=== PATIENT | female | born 1950 | race Caucasian/White ===

== ENCOUNTER 2023-03-22 08:54 | Inpatient (IN) | payer MEDICARE ==
[~2023-03-22] VITALS: Ht 154.9 cm; Wt 59.0 kg
[~2023-03-22 08:54] MED LIST: ALPR0.254; ARFO15NE2; AZIT-43; AZITTAB11; BUDE160A3; CALCIUM; ESTR0.1C; IPRIH; LEVAAER4; NAS17NSL; OMEP20CA74; PRAVASTATIN 40 MG; PREDNISONE 10 MG; PROMETHAZINE DM; See Long Drug Name; VITAMIN D3
[2023-03-22 10:19] VITALS: PULSE 91; RESP 24; O2SAT 98
[2023-03-22] MEDS ORDERED: ONDANSETRON HCL 4 MG/2 ML VIAL IV ONE (10:45)
[2023-03-22] MEDS ORDERED: MORPHINE SULFATE INJ 2 MG/ml SYRG IV ONE ×2 (10:45→11:15)
[2023-03-22 11:00] LABS: Basophils # (auto) 0 10 ^3/uL (0-0.2); Basophils % (auto) 0.3 % (0.0-2.0); Eosinophils # (auto) 0 10 ^3/uL (0-0.8); Eosinophils % (auto) 0.2 % (0.0-7.0); Hematocrit 36.9 % (36.0-46.0); Hemoglobin 12.5 g/dL (12.2-16.2); Lymphocytes # (auto) 0.9 10 ^3/uL (0.4-5.4); Lymphocytes % (auto) 8.5 % (10.0-50.0); Mean Corpuscular Hemoglobin 33.8 pg (28.0-32.0); Mean Corpuscular Hgb Conc. 33.9 g/dL (32.0-36.0); Mean Corpuscular Volume 99.8 fL (80.0-100.0); Monocytes # (auto) 0.8 10 ^3/uL (0-1.3); Monocytes % (auto) 7.4 % (0.0-12.0); Neutrophils # (auto) 8.8 10 ^3/uL (1.6-8.6); Neutrophils % (auto) 83.6 % (37.0-80.0); Red Cell Distribution Width 12.2 % (11.8-14.3); White Blood Cell 10.6 10^3/uL (4.4-10.8)
[2023-03-22 11:03] LABS: Alanine Aminotransferase 27 U/L (7-40); Albumin 4.6 g/dL (3.2-4.8); Alkaline Phosphatase 27 U/L (46-116); Aspartate Aminotransferase 28 U/L (13-40); BUN/Creatinine Ratio 16.2 (10.0-20.0); Blood Urea Nitrogen 11 mg/dL (9-23); Calcium 9.6 mg/dL (8.5-10.1); Carbon Dioxide 25 mmol/L (20-30); Glucose 104 mg/dL (74-106)
[2023-03-22 11:04] LABS: Bilirubin, Total 0.6 mg/dL (0.2-1.0); Total Protein 7.6 g/dL (5.7-8.2)
[2023-03-22 11:30] LABS: Anion Gap 6 (5-15); Chloride 105 mmol/L (98-107); Potassium 4.3 mmol/L (3.5-5.1); Sodium 136 mmol/L (136-145)
[2023-03-22 11:44] LABS: INR 1.05 (0.9-1.15); Partial Thromboplastin Time 28.3 SEC (24.5-34.5)
[2023-03-22 12:31] LABS: Urine Bacteria NONE SEEN /hpf (None Seen); Urine Blood Negative /uL (Negative); Urine Clarity Clear (Clear); Urine Color Colorless (Yellow); Urine Hyaline Cast FEW /lpf (0 - 2); Urine Protein, UAD Negative (Negative); Urine Specific Gravity 1.018 (1.001-1.035); Urine Urobilinogen Normal (Negative); Urine WBC 1 /hpf (0 - 5)
[2023-03-22] MEDS ORDERED: ACETAMINOPHEN 325 MG TAB PO PRN (13:45)
[2023-03-22] MEDS ORDERED: NITROGLYCERIN 0.4 MG SL TAB SL PRN (13:45)
[2023-03-22] MEDS ORDERED: DOCUSATE SOD 100 MG CAP PO PRN (13:45)
[2023-03-22] MEDS ORDERED: MORPHINE SULFATE INJ 2 MG/ml SYRG IV PRN (13:45)
[2023-03-22] MEDS ORDERED: KETOROLAC TROMETH 30 MG/ML 1ML VIAL IV ONE (14:30)
[2023-03-22] MEDS: SODIUM CHLORIDE 0.9% 1,000 ML IV SCH (14:50)
[2023-03-22] MEDS ORDERED: PRED1SUS4 OP (16:26)
[2023-03-22] MEDS ORDERED: KETO0.5S31 LEFTEYE (16:26)
[2023-03-22] MEDS ORDERED: MOXI0.5S3 LEFTEYE (16:26)
[2023-03-22] MEDS ORDERED: ATOR20TA50 PO (16:26)
[2023-03-22] MEDS ORDERED: FLUT1AER3 PO (16:26)
[2023-03-22] MEDS ORDERED: prednisoLONE ACETATE 1% OPTH SUSP 5ML OP SCH (18:00)
[2023-03-22] MEDS: MOXIFLOXACIN HYDROCHLORIDE LEFTEYE SCH ×2 (18:03→22:00)
[2023-03-22] MEDS: HYDROcodone-ACET 5/325MG TAB PO PRN (18:44)
[2023-03-22 20:15] VITALS: PULSE 84; RESP 12; O2SAT 99
[2023-03-22] MEDS: KETOROLAC TROMETHAMINE 0.5% LEFTEYE SCH (22:00)
[2023-03-22] MEDS: ATORVASTATIN 20 MG TAB PO SCH (22:43)
[2023-03-22] MEDS: ONDANSETRON HCL 4 MG/2 ML VIAL IV PRN (22:43)
[2023-03-22] MEDS: MORPHINE SULFATE INJ 2 MG/ml SYRG IV PRN (22:44)
[2023-03-23] VITALS (10 sets, daily range): BP systolic 121–139; BP diastolic 59–74; PULSE 73–98; RESP 12–19; TEMP 97.6–99.9; O2SAT 90–97
[2023-03-23] MEDS: MORPHINE SULFATE INJ 2 MG/ml SYRG IV PRN ×2 (05:06→20:19)
[2023-03-23] MEDS: MOXIFLOXACIN HYDROCHLORIDE LEFTEYE SCH ×4 (05:18→21:43)
[2023-03-23] MEDS: SODIUM CHLORIDE 0.9% 1,000 ML IV SCH ×2 (06:25→14:36)
[2023-03-23 06:35] LABS: Basophils # (auto) 0 10 ^3/uL (0-0.2); Basophils % (auto) 0.4 % (0.0-2.0); Eosinophils # (auto) 0.2 10 ^3/uL (0-0.8); Eosinophils % (auto) 2.6 % (0.0-7.0); Hematocrit 33.3 % (36.0-46.0); Hemoglobin 11.4 g/dL (12.2-16.2); Lymphocytes # (auto) 0.9 10 ^3/uL (0.4-5.4); Lymphocytes % (auto) 13.1 % (10.0-50.0); Mean Corpuscular Hgb Conc. 34.2 g/dL (32.0-36.0); Mean Corpuscular Volume 99.2 fL (80.0-100.0); Monocytes # (auto) 0.4 10 ^3/uL (0-1.3); Monocytes % (auto) 6.4 % (0.0-12.0); Neutrophils # (auto) 5.4 10 ^3/uL (1.6-8.6); Neutrophils % (auto) 77.5 % (37.0-80.0); Red Blood Cells 3.35 10^6/uL (4.0-5.20); Red Cell Distribution Width 12.4 % (11.8-14.3)
[2023-03-23 06:51] LABS: Alanine Aminotransferase 20 U/L (7-40); Alkaline Phosphatase 27 U/L (46-116); Anion Gap 5 (5-15); Aspartate Aminotransferase 16 U/L (13-40); BUN/Creatinine Ratio 20.9 (10.0-20.0); Blood Urea Nitrogen 19 mg/dL (9-23); Carbon Dioxide 27 mmol/L (20-30); Chloride 103 mmol/L (98-107); Glucose 105 mg/dL (74-106); Potassium 4.4 mmol/L (3.5-5.1); Sodium 135 mmol/L (136-145)
[2023-03-23 06:52] LABS: Bilirubin, Total 0.9 mg/dL (0.2-1.0); Total Protein 6.8 g/dL (5.7-8.2)
[2023-03-23] MEDS ORDERED: PROPOFOL 10 MG/ML 20 ML IV ONE (07:04)
[2023-03-23] MEDS ORDERED: TRANEXAMIC ACID 0 ML ONE (07:05)
[2023-03-23] MEDS ORDERED: GLYCOPYRROLATE 0.2 MG/ML 1ML VIAL ONE (07:05)
[2023-03-23] MEDS ORDERED: LIDOCAINE 1% (LOCAL ANESTH.) PF 5ml SDV ONE (07:05)
[2023-03-23] MEDS ORDERED: DexAMETHasone SOD PHOS 10MG/1ML VIAL INJ ONE (07:05)
[2023-03-23] MEDS ORDERED: KETOROLAC TROMETH 30 MG/ML 1ML VIAL ONE (07:05)
[2023-03-23] MEDS ORDERED: ONDANSETRON HCL 4 MG/2 ML VIAL ONE (07:05)
[2023-03-23] MEDS ORDERED: fentaNYL CITRATE 100 MCG/2 ML VL ONE (07:06)
[2023-03-23] MEDS ORDERED: VANCOMYCIN HCL 1000 MG VL ONE (07:06)
[2023-03-23] MEDS ORDERED: BUPIVACAINE 0.25% INJ 50ML VIAL ONE ×2 (07:09→07:45)
[2023-03-23] MEDS ORDERED: DexAMETHasone SOD PHOS 4 MG/1ML SDV INJ ONE (07:09)
[2023-03-23] MEDS ORDERED: EPINEPHrine HCL 1 MG/1 ML AMP ONE (07:09)
[2023-03-23] MEDS ORDERED: TRANEXAMIC ACID 20 ML ONE (07:20)
[2023-03-23] MEDS ORDERED: ceFAZolin 1GM/50ML 50 ML IV ONE (07:41)
[2023-03-23] MEDS ORDERED: ceFAZolin 1GM VL ONE (08:01)
[2023-03-23] MEDS ORDERED: PHENYLEPHRINE HCL 10 MG/ML VL ONE (08:08)
[2023-03-23] MEDS ORDERED: SODIUM CHLORIDE LOCK 10 ML ONE (08:08)
[2023-03-23] MEDS: KETOROLAC TROMETHAMINE 0.5% LEFTEYE SCH ×2 (10:00→21:42)
[2023-03-23] MEDS: Fluticasone-Umeclidinium-Vilan (Trelegy Ellipta 100-62.5-25 Mcg/I PO SCH (10:00)
[2023-03-23] MEDS ORDERED: LABETALOL HCL 5 MG/ML 4ML SYRINGE IV PRN (10:30)
[2023-03-23] MEDS ORDERED: ePHEDrine SULFATE 50 MG/ML AMP IV PRN (10:30)
[2023-03-23] MEDS ORDERED: HYDROmorphone HCL 2 MG/ML VL/or syr IV PRN (10:30)
[2023-03-23] MEDS ORDERED: fentaNYL CITRATE 100 MCG/2 ML VL IV PRN (10:30)
[2023-03-23] MEDS ORDERED: NALOXONE HCL 0.4 MG/ML VIAL IV PRN (10:30)
[2023-03-23] MEDS ORDERED: hydrALAZINE HCL 20 MG/ML VL IV PRN (10:30)
[2023-03-23] MEDS ORDERED: ONDANSETRON HCL 4 MG/2 ML VIAL IV PRN (10:30)
[2023-03-23] MEDS ORDERED: FLUMAZENIL 0.1 MG/ML INJ 10ML MDV IV PRN (10:30)
[2023-03-23] MEDS: ONDANSETRON HCL 4 MG/2 ML VIAL IV PRN (20:24)
[2023-03-23] MEDS: ATORVASTATIN 20 MG TAB PO SCH (21:42)
[2023-03-24] VITALS (7 sets, daily range): BP systolic 108–139; BP diastolic 48–72; PULSE 65–98; RESP 12–18; TEMP 97.6–98.3; O2SAT 96–99
[2023-03-24] MEDS: MORPHINE SULFATE INJ 2 MG/ml SYRG IV PRN ×2 (00:30→17:25)
[2023-03-24] MEDS: MOXIFLOXACIN HYDROCHLORIDE LEFTEYE SCH ×4 (06:23→21:44)
[2023-03-24] MEDS: ENOXAPARIN SOD 40 MG/0.4 ML SYRINGE SC SCH (09:25)
[2023-03-24] MEDS: KETOROLAC TROMETHAMINE 0.5% LEFTEYE SCH ×2 (09:26→21:43)
[2023-03-24] MEDS: Fluticasone-Umeclidinium-Vilan (Trelegy Ellipta 100-62.5-25 Mcg/I PO SCH (09:26)
[2023-03-24] MEDS: HYDROcodone-ACET 5/325MG TAB PO PRN (13:32)
[2023-03-24 13:50] LABS: COVID19 ANTIGEN SOFIA FIA NEGATIVE (NEGATIVE)
[2023-03-24] MEDS: SODIUM CHLORIDE 0.9% 1,000 ML IV SCH (15:45)
[2023-03-24] MEDS: ATORVASTATIN 20 MG TAB PO SCH (21:43)
[2023-03-25 02:00] VITALS: BP 129/63; PULSE 86; RESP 17; TEMP 98.4; O2SAT 96
[2023-03-25] MEDS: HYDROcodone-ACET 5/325MG TAB PO PRN ×2 (04:51→10:24)
[2023-03-25 05:00] VITALS: BP 129/63; PULSE 86; RESP 17; TEMP 98.4; O2SAT 96
[2023-03-25] MEDS: MOXIFLOXACIN HYDROCHLORIDE LEFTEYE SCH ×2 (05:05→11:47)
[2023-03-25 08:00] VITALS: BP 130/75; PULSE 70; RESP 16; TEMP 97.7; O2SAT 100
[2023-03-25 09:00] VITALS: BP 136/75; PULSE 70; RESP 16; TEMP 97.7; O2SAT 100
[2023-03-25] MEDS: SODIUM CHLORIDE 0.9% 1,000 ML IV SCH (09:37)
[2023-03-25] MEDS: ENOXAPARIN SOD 40 MG/0.4 ML SYRINGE SC SCH (09:40)
[2023-03-25] MEDS: KETOROLAC TROMETHAMINE 0.5% LEFTEYE SCH (09:40)
[2023-03-25] MEDS: Fluticasone-Umeclidinium-Vilan (Trelegy Ellipta 100-62.5-25 Mcg/I PO SCH (09:44)
[2023-03-25 13:00] VITALS: BP 104/58; PULSE 72; RESP 14; TEMP 98.3; O2SAT 95
[2023-03-25 13:30] VITALS: BP 104/58; PULSE 72; RESP 14; TEMP 98.3; O2SAT 95
== END 2023-03-25 13:55 | DRG 521 ==
LOC: EDBD 08:54 → ER 08:54 → OVERFLOW 13:42 → WEST WING 23:53
PROVIDERS: ADMIT Nurse Practitioner Family; ATTEND Family Medicine
PROC: 0SRR0J9 Replacement of Right Hip Joint, Femoral Surface with Synthetic Substitute, Cemented, Open Approach (ICD-10-PCS; principal; 2023-03-23 07:47)
DX: S72.001A Fracture of unspecified part of neck of right femur, initial encounter for closed fracture (principal); J96.20 Acute and chronic respiratory failure, unspecified whether with hypoxia or hypercapnia; J44.1 Chronic obstructive pulmonary disease with (acute) exacerbation; W06.XXXA Fall from bed, initial encounter; E78.00 Pure hypercholesterolemia, unspecified; Z20.822 Contact with and (suspected) exposure to COVID-19; F03.C0 Unspecified dementia, severe, without behavioral disturbance, psychotic disturbance, mood disturbance, and anxiety; Z86.73 Personal history of transient ischemic attack (TIA), and cerebral infarction without residual deficits; Z88.5 Allergy status to narcotic agent; Z88.0 Allergy status to penicillin; Z88.2 Allergy status to sulfonamides; Z79.899 Other long term (current) drug therapy; Z90.710 Acquired absence of both cervix and uterus; Z99.81 Dependence on supplemental oxygen; Y93.89 Activity, other specified; Y92.89 Other specified places as the place of occurrence of the external cause; Y99.8 Other external cause status
CPT/HCPCS: 36415; 70450; 71045; 72125; 72170; 73502; 80053; 81001; 83880; 84484; 85025; 85610; 85730; 87426; 96374; 96375; 97110; 97116; 97163; 97530; G0378; J0171; J0690; J1100; J1885; J2405; J2704; J3490